=== PATIENT | female | born 1950 | race African-American/Black ===

== ENCOUNTER → 2019-03-18 13:17 | Outpatient (CLI) | payer MEDICARE, OTHER, SELFPAY ==
--- NOTE | 2019-03-18 | DI.RAD.S_ITS ---
PROCEDURE: XR CHEST 2V INDICATIONS: HISTORY OF RENAL CELL CARCINOMA TECHNIQUE: 2 views of the chest were acquired. COMPARISON: Chest radiographs 03/05/18. CT of the chest 01/30/16. FINDINGS: Surgical changes and devices: None. Lungs and pleura: There is mild prominence of pulmonary vasculature. There is mild bilateral almita-hilar reticular pulmonary opacities noted. No focal consolidations or masses are identified. No pleural effusion or pneumothorax. Mediastinum: Mediastinal contours are normal. Heart size is normal. Bones and chest wall: Mild to moderate multilevel degenerative changes of the thoracic spine are noted. IMPRESSION: Findings suggestive of mild bilateral perihilar atelectasis versus mild pulmonary edema. No focal pulmonary consolidations or masses are identified. Consider CT if there is continued clinical concern. Dictated by: Ramin Stone M.D. on 03/18/2019 at 17:09 Approved by: Ramin Stone M.D. on 03/18/2019 at 17:19
--- NOTE | 2019-03-18 | DI.US.S_ITS ---
PROCEDURE: US RENAL COMPLETE INDICATIONS: HISTORY OF RENAL CELL CA, prior partial left nephrectomy. TECHNIQUE: Real-time scanning was performed of the kidneys and bladder, with image documentation. COMPARISON: CT, CT CHEST WO CON, 01/30/2016, 9:39. CT, CT ABD PELVIS W&WO CON IVP, 12/08/2015, 10:03. FINDINGS: Kidneys: Kidneys are normal in size. Right kidney measures 9.8 cm long; left kidney measures 9.2 cm long. Right renal cortical thickness is 1.8 cm; left renal cortical thickness is 1.8 cm. No hydronephrosis or nephrolithiasis. No suspicious solid mass lesions. Bilateral renal cysts redemonstrated, largest of which is on the left measuring 2.0 x 1.5 x 1.7 cm which has increased compared to prior examination. Patient is status post partial left nephrectomy. Bladder: Pre-void bladder volume is 160 mL. Post-void residual is 0 mL. Pre-void images demonstrate no intraluminal masses or stones. On pre-void images, bilateral ureteral jets are noted with color Doppler interrogation. (Of note, ureteral jets may not be detectable in up to 25% of cases due to insufficient differences in specific gravity between ureteral and bladder urine). Miscellaneous: No free pelvic fluid. IMPRESSION: 1. Bilateral renal cysts with slight increase in size on the left. 2. No discrete renal mass identified. Dictated by: Dash OLIVIER Interpreted: Jalil Linder MD on 03/18/2019 at 15:13 Approved by: Jalil Linder M.D. on 03/18/2019 at 15:47
[2019-03-18 16:19] LABS: Blood Urea Nitrogen 22 mg/dL (7-17)
== END ==
PROVIDERS: Visit Provider Urology
DX: N28.1 Cyst of kidney, acquired (principal); Z85.528 Personal history of other malignant neoplasm of kidney
CPT/HCPCS: 36415; 71046; 76770; 82565; 84520

== ENCOUNTER → 2020-05-26 15:36 | Outpatient (CLI) | payer MEDICARE, OTHER, SELFPAY ==
--- NOTE | 2020-05-26 | DI.US.S_ITS ---
PROCEDURE: US PERIPH VENOUS LOW EXTREM RT INDICATIONS: HEAT, EDEMA, ERYTHEMA, PAIN TECHNIQUE: Real-time imaging, as well as color and pulse Doppler interrogation, were performed of the lower extremity deep veins from the inguinal ligament to the popliteal fossa. COMPARISON: None. FINDINGS: The common femoral, femoral and popliteal veins are normally compressible, and free of intraluminal thrombus. Color and pulse Doppler demonstrate normal phasic intraluminal flow. There is normal augmentation response to distal compression maneuver. IMPRESSION: Negative for deep venous thrombosis. Dictated by: Serafin Becerra M.D. on 05/26/2020 at 17:17 Approved by: Serafin Becerra M.D. on 05/26/2020 at 17:17
== END ==
PROVIDERS: PCP Physician Assistant Medical; Referring Provider Physician Assistant Medical; Visit Provider Physician Assistant Medical
DX: M79.604 Pain in right leg (principal); R60.0 Localized edema; L53.9 Erythematous condition, unspecified; R20.8 Other disturbances of skin sensation
CPT/HCPCS: 93971

== ENCOUNTER 2020-12-01 13:01 | Emergency (ER) | payer MEDICARE, OTHER, SELFPAY ==
[2020-12-01] VITALS (9 sets, daily range): BP systolic 164–172; BP diastolic 74–79; PULSE 76–90; RESP 18; TEMP 36.1; O2SAT 95–98; BMI 34.3
--- NOTE | 2020-12-01 15:33 | ED_ITS ---
HPI - Headache General Chief Complaint: Headache Stated Complaint: Headache for 3 Days, Going Into Back and Left Arm Time Seen by Provider: 12/01/20 15:33 Mode of arrival: Ambulatory Limitations: no limitations History of Present Illness HPI Narrative: 69-year-old woman with a history of diabetes hypertension and bilateral renal cancer. He had a partial left nephrectomy a number of years ago and in May was found to have a recurrent cancer on the right side and concern for recurrence verses cysts on the left side. She has been seen at [facility] and further workup has been somewhat delayed. Apparently surgery is going to be required but a cardiac evaluation after noticing small murmur heart murmur will need to have an 1st. She believes that chemotherapy is also going to be involved but she is not entirely sure. Today she notes that she has had intermittent numbness over the inner upper aspect of her left arm she has had a headache for the last 6 days focused in the posterior portion of her head and right bony ankle pain over the last week with no injuries. She notes that her blood pressure is been up slightly she is having occasional lightheadedness associated with the headache. She has never had headaches similar to this. She denies chest pain, palpitations, abdominal pain, dysuria. Related Data Allergies Allergy/AdvReac Type Severity Reaction Status Date / Time cinnamon Allergy Verified 12/01/20 13:12 Review of Systems Review of Systems Narrative: Remainder of complete review of systems is otherwise unremarkable except for that included in the HPI. Patient History Medical History Diabetes Hypertension Renal cancer Social History Smoking Status: Former smoker Smoking Status: Former smoker Substance Use Type: does not use Exam Narrative Exam Narrative: General: Healthy appearing, in no acute distress. Able to give a complete and coherent history. Well-nourished well-developed HEENT: Moist mucous membranes, normal sclera with reactive pupils, Neck: No JVD, supple. No trapezius muscle spasm and no occipital point inserti on tenderness Respiratory: Lungs are clear to auscultation, no wheezing no rales no rhonchi. Full and symmetrical air movement Cardiac: Regular rate and rhythm, 2/6 systolic ejection murmur, no bruits. Abdomen: Soft, nontender, good bowel tones, no flank pain Skin: Warm and dry, no rashes Neurologic: Grossly neurologically intact with no obvious asymmetries or abnormalities Extremities: No trauma, she has point tenderness along the right distal fibula and lateral malleolus without contusion, swelling or bruising. Well perfused Psych: Cooperative, appropriate insight and affect Initial Vital Signs Initial Vital Signs: Vital Signs Temperature 96.9 F L 12/01/20 13:09 Pulse Rate 90 12/01/20 13:09 Respiratory Rate 18 12/01/20 13:09 Pulse Oximetry 98 12/01/20 13:09 Course Orders Ordered: ED Orders 12/01/20 16:38 XR ankle RT min 3V Stat 12/01/20 16:41 CT head/brain wo con Stat 12/01/20 17:00 Complete Blood Count AUTO DIFF Stat Comprehensive Metabolic Panel Stat Discontinued Medications Dexamethasone (Dexamethasone 10 Mg/Ml Vial) 10 mg IV NOW ONE Stop: 12/01/20 16:39 Last Admin: 12/01/20 17:09 Dose: 10 mg Documented by: ALEXIS Diphenhydramine HCl (Diphenhydramine 50 Mg/Ml Vial) 25 mg IV NOW ONE Stop: 12/01/20 16:39 Last Admin: 12/01/20 17:09 Dose: 25 mg Documented by: ALEXIS Sodium Chloride (Normal Saline 0.9%) 1,000 mls @ 1,000 mls/hr IV BOLUS ONE Stop: 12/01/20 17:37 Last Infusion: 12/01/20 18:13 Dose: 0 mls/hr Documented by: Admin: 12/01/20 17:08 Dose: 1,000 mls/hr Documented by: ALEXIS Metoclopramide HCl (Metoclopramide 10 Mg/2 Ml Inj) 10 mg IV NOW ONE Stop: 12/01/20 16:39 Last Admin: 12/01/20 17:09 Dose: 10 mg Documented by: ALEXIS Vital Signs Vital signs: Vital Signs - 8 hr 12/01/20 13:09 12/01/20 16:07 12/01/20 16:48 Temperature 96.9 F L Pulse Rate 90 82 Respiratory Rate 18 Blood Pressure 172/79 H Pulse Oximetry 98 96 98 12/01/20 17:15 12/01/20 17:16 12/01/20 17:30 Temperature Pulse Rate 78 76 Respiratory Rate Blood Pressure 170/74 H Pulse Oximetry 98 98 95 12/01/20 18:00 12/01/20 18:16 12/01/20 18:30 Temperature Pulse Rate 84 88 77 Respiratory Rate 18 Blood Pressure 167/77 H 164/77 H Pulse Oximetry 95 96 95 MDM - Headache Lab Data Result diagrams: 12/01/20 17:00 12/01/20 17:00 Labs: Lab Results 12/01/20 12/01/20 Range/Units 17:00 17:00 WBC 8.8 (4.5-11.0) X10^3/uL RBC 4.89 (4.0-5.2) X10^6/uL Hgb 13.0 (12.0-16.0) g/dL Hct 39.8 (36-46) % MCV 81.5 (80-100) fL MCH 26.6 (26-34) PG MCHC 32.6 (30-36) % RDW 14.7 (11.6-14.8) % Plt Count 256 (150-400) X10^3/uL Neut % (Auto) 57.1 (50-75) % Lymph % (Auto) 32.5 (25-40) % [place] % (Auto) 7.6 (3-14) % Eos % (Auto) 2.0 (2-4) % Baso % (Auto) 0.8 (0-2) % Neut # (Auto) 5000 (6588-3453) /uL Lymph # (Auto) 2900 (5731-3115) /uL [place] # (Auto) 700 (0-900) /uL Eos # (Auto) 200 (0-450) /uL Baso # (Auto) 100 (0-100) /uL Sodium 139 (137-145) mmol/L Potassium 3.8 (3.4-5.1) mmol/L Chloride 106 (98-107) mmol/L Carbon Dioxide 26 (22-32) mmol/L BUN 22 H (7-17) mg/dL Creatinine 0.92 (0.52-1.04) mg/dL Estimated GFR > 60.0 (>60) mL/min BUN/Creatinine Ratio 23.9 H (6-22) Glucose 88 (80-110) mg/dL Calcium 9.6 (8.4-10.2) mg/dL Total Bilirubin 0.4 (0.2-1.3) mg/dL AST 29 (14-36) IU/L ALT 21 (<35) IU/L Alkaline Phosphatase 61 (38-126) U/L Total Protein 6.5 (6.3-8.2) g/dL Albumin 3.7 (3.5-5.0) g/dL Globulin 2.8 (1.7-4.1) g/dL Albumin/Globulin Ratio 1.3 (1.0-2.8) Imaging Data XR ankle: Radiologist's Impression: FINDINGS: Bones: No fractures or dislocations. Ankle mortise is normally aligned. No suspicious bony lesions. Soft tissues: No tibiotalar joint effusion. Achilles tendon appears normal. IMPRESSION: No visualized acute fracture or dislocation. However, if clinical concern and/or pain persist, short interval imaging followup in 7-10 days is recommended, as occult injury cannot be definitively excluded. Dictated by: Lula Potter M.D. on 12/01/2020 at 17:24 CT scan - head: Radiologist's Impression: FINDINGS: Image quality: Excellent. CSF spaces: Basal cisterns are patent. No extra-axial fluid collections. The ventricles are symmetric in size and shape. Brain: No intracranial bleeds or masses. There is cerebral volume loss for age, with resultant ventricular and sulcal prominence. There are periventricular and deep white matter chronic small vessel ischemic changes. There is intracranial internal carotid artery atherosclerosis. Skull and face: Calvarium and visualized facial bones appear intact, without suspicious lesions. Sinuses: Visualized sinuses and mastoids are clear. IMPRESSION: 1. No acute intracranial process. 2. Mild to moderate atrophy and chronic microvascular ischemic changes. Dictated by: Lula Potter M.D. on 12/01/2020 at 17:34 [facility] Narrative Medical decision making narrative: 69-year-old woman with history of renal cell cancer recurrent in May of this year unclear if this is a 2nd primary or metastatic disease. Because of the possibility of metastatic disease with a recurrent headache and on musculoskeletal pain imaging was undertaken. CT scan of the brain is unremarkable. Lab work is reassuring. X-ray of the right ankle is unremarkable. Discharge Plan Departure Patient Disposition: Home Clinical Impression: Headache Qualifiers: Headache type: unspecified Headache chronicity pattern: acute headache Intractability: not intractable Qualified Code(s): R51.9 - Headache, unspecified Instructions: DI for Headache Activity Restrictions/Additional Instructions: Thank you for coming in today I did not find any life-threatening explanation for your headache. Specifically your kidney function, liver function, electrolytes, red blood cells and white blood cells are all reassuring we normal. The CT scan of your head does not show any significant abnormalities and specifically does not show any concerns for your kidney cancer that has spread. Similarly your right ankle x-ray was entirely normal I suspect that you simply sprained that ankle and it will improve Your headache improved with fluids, nausea medicine and a dose of steroid to ensure that it does not return tomorrow. Please follow-up with your primary care physician If you have new or worsening symptoms please return to the ER for further e valuation. Referrals: Karoline Kilpatrick [Primary Care Provider] -
--- NOTE | 2020-12-01 16:38 | DI.RAD.S_ITS ---
PROCEDURE: XR ANKLE RT MIN 3V INDICATIONS: pain lateral malleolus, no trauma, h/o renal cell cancer TECHNIQUE: 3 views of the ankle were acquired. COMPARISON: None. FINDINGS: Bones: No fractures or dislocations. Ankle mortise is normally aligned. No suspicious bony lesions. Soft tissues: No tibiotalar joint effusion. Achilles tendon appears normal. IMPRESSION: No visualized acute fracture or dislocation. However, if clinical concern and/or pain persist, short interval imaging followup in 7-10 days is recommended, as occult injury cannot be definitively excluded. Dictated by: Lula Potter M.D. on 12/01/2020 at 17:24 Approved by: Lula Potter M.D. on 12/01/2020 at 17:24
--- NOTE | 2020-12-01 16:41 | DI.CT.S_ITS ---
PROCEDURE: CT HEAD/BRAIN WO CON INDICATIONS: headache x1 week. h/o renal cell cancer recurrent in Januar TECHNIQUE: Noncontrast 4.5 mm thick angled axial sections acquired from the foramen magnum to the vertex, with coronal and sagittal reformats. For radiation dose reduction, the following was used: automated exposure control, adjustment of mA and/or kV according to patient size. COMPARISON: None. FINDINGS: Image quality: Excellent. CSF spaces: Basal cisterns are patent. No extra-axial fluid collections. The ventricles are symmetric in size and shape. Brain: No intracranial bleeds or masses. There is cerebral volume loss for age, with resultant ventricular and sulcal prominence. There are periventricular and deep white matter chronic small vessel ischemic changes. There is intracranial internal carotid artery atherosclerosis. Skull and face: Calvarium and visualized facial bones appear intact, without suspicious lesions. Sinuses: Visualized sinuses and mastoids are clear. IMPRESSION: 1. No acute intracranial process. 2. Mild to moderate atrophy and chronic microvascular ischemic changes. Dictated by: Lula Potter M.D. on 12/01/2020 at 17:34 Approved by: Lula Potter M.D. on 12/01/2020 at 17:34
[2020-12-01 17:05] LABS: Add Manual Diff / Slide Review NO; Basophils Absolute Auto 100 /uL (0-100); Basophils Percent Auto 0.8 % (0-2); Eosinophils Absolute Auto 200 /uL (0-450); Hematocrit 39.8 % (36-46); Lymphocytes Absolute Auto 2900 /uL (1100-4500); Lymphocytes Percent Auto 32.5 % (25-40); Mean Corpuscular HGB Conc 32.6 % (30-36); Mean Corpuscular Hemoglobin 26.6 PG (26-34); Mean Corpuscular Volume 81.5 fL (80-100); Monocytes Absolute Auto 700 /uL (0-900); Monocytes Percent Auto 7.6 % (3-14); Neutrophils Absolute Auto 5000 /uL (1500-7000); Neutrophils Percent Auto 57.1 % (50-75); Platelet Count 256 X10^3/uL (150-400); Red Blood Cell Count 4.89 X10^6/uL (4.0-5.2); Red Cell Distribution Width 14.7 % (11.6-14.8); White Blood Cell Count 8.8 X10^3/uL (4.5-11.0)
[2020-12-01] MEDS: SODIUM CHLORIDE 0.9% 1,000 ML 1000 ML IV (17:08)
[2020-12-01] MEDS: diphenhydrAMINE 50 MG/ML VIAL 25 MG IV (17:09)
[2020-12-01] MEDS: METOCLOPRAMIDE 10 MG/2 ML INJ IV (17:09)
[2020-12-01] MEDS: DEXAMETHASONE 10 MG/ML VIAL IV (17:09)
[2020-12-01 17:17] LABS: Alanine Aminotransferase 21 IU/L (<35); Albumin 3.7 g/dL (3.5-5.0); Albumin Globulin Ratio 1.3 (1.0-2.8); Alkaline Phosphatase 61 U/L (38-126); Aspartate Aminotransferase 29 IU/L (14-36); BUN Creatinine Ratio 23.9 (6-22); Bilirubin Total 0.4 mg/dL (0.2-1.3); Blood Urea Nitrogen 22 mg/dL (7-17); Calcium 9.6 mg/dL (8.4-10.2); Carbon Dioxide 26 mmol/L (22-32); Chloride 106 mmol/L (98-107); Estimated Glomerular Filt Rate > 60.0 mL/min (>60); Globulin 2.8 g/dL (1.7-4.1); Glucose 88 mg/dL (80-110); HEMOLYSIS < 15 (0-50); Potassium 3.8 mmol/L (3.4-5.1); Sodium 139 mmol/L (137-145); Total Protein 6.5 g/dL (6.3-8.2)
== END 2020-12-01 19:41 | disposition home or self-care (01) ==
PROVIDERS: Emergency Provider Emergency Medicine; PCP Physician Assistant Medical
DX: R51.9 Headache, unspecified (principal); R20.0 Anesthesia of skin; R42 Dizziness and giddiness; C64.9 Malignant neoplasm of unspecified kidney, except renal pelvis
CPT/HCPCS: 36415; 70450; 73610; 80053; 85025; 96361; 96374; 96375; 99284; J1100; J1200; J2765

== ENCOUNTER → 2020-12-02 09:27 | Outpatient (CLI) | payer MEDICARE, OTHER, SELFPAY ==
--- NOTE | 2020-12-02 | DI.ECHO.S_ITS ---
[facility]---------+ [facility] +---------+ : : [address] : : : : [id number] : : : : Phone: [phone] Echocardiogram Report + + :Name: FELIPE BUCIO Study Date: 12/02/2020 Height: 59 in : :[facility] ReadingLocation: Weight: 170 lb : : Gender: Female BSA: 1.7 m2 : :: 1950 Age: 69 yrs BP: 169/97 mmHg: :Reason For Study: Murmur : :Ordering Physician: KYLEE, : :ALESSANDRO Performed By: Channing Cortes : :Referring: ALESSANDRO PICHARDO : + + Interpretation Summary Normal left ventricle size with ejection fraction 60-65%. Mild aortic valve sclerosis. Mild mitral annular calcification. Comparison is made with the echocardiogram of 01/24/2016, there has been no significant change. Procedure: A two-dimensional transthoracic echocardiogram with color flow and Doppler was performed. The study quality was technically adequate. Comparison is made with the echocardiogram of 01/24/2016. The patient was in sinus rhythm with heart rates between 92-103 bpm during the exam. Left Ventricle: The left ventricle is normal in size and wall thickness. The ejection fraction is estimated to be 60-65%. There are no focal wall motion abnormalities. Diastolic function could not be accurately assessed due to unobtainable data. Right Ventricle: The right ventricle is normal in size and function. Atria: Both atria are normal in size. There is no Doppler evidence for an interatrial shunt. Mitral Valve: There is mild mitral annular calcification. There is trace mitral regurgitation. Aortic Valve: There is mild aortic valve sclerosis. There is trace aortic regurgitation. Tricuspid Valve: The tricuspid valve is normal in structure and function. No tricuspid regurgitation. Pulmonary artery pressures cannot be estimated because of the lack of a measurable TR jet velocity but the IVC suggests a CVP of around 3 mmHg. Pulmonic Valve: The pulmonic valve is not well seen, but is grossly normal. There is no pulmonic valvular regurgitation. Great Vessels: The aortic root is normal size. The dimensions of the ascending aorta are normal. The IVC is of normal diameter and collapses greater than 50% with a sniff. This suggests a low right atrial pressure of 3 mm Hg. Pericardium/ Pleura There is no pericardial effusion. There is no pleural effusion. MMode/2D Measurements & Calculations LVIDd: 4.7 cm LVOT diam: 1.9 cm LVIDs: 3.1 cm Ao root diam: 2.9 cm FS: 33.1 % asc Aorta Diam: 3.4 cm IVSd: 0.90 cm LVPWd: 0.82 cm LV vizcarra. diameter/BSA (cm/m^2): 2.7 LV sys. diameter/BSA (cm/m^2): 1.8 LA A2 area: 16.0 cm2 RA long axis: 4.2 cm LA A4 area: 18.4 cm2 RA area: 11.7 cm2 LA length (vol): 5.0 cm RA vol: 27.7 ml LA vol: 49.4 ml RA : 16.1 ml/m2 LA vol index: 28.7 ml/m2 TAPSE: 2.6 cm Doppler Measurements & Calculations Ao V2 max: 192.8 cm/sec LVOT Max Devang: 128.5 cm/sec Ao V2 mean: 114.7 cm/sec LV V1 max P.6 mmHg Ao max P.9 mmHg LV V1 VTI: 25.0 cm Ao mean P.2 mmHg HOLLY(I,D): 2.2 cm2 Ao V2 VTI: 30.8 cm HOLLY(V,D): 1.8 cm2 sev ratio: 0.81 HOLLY indexed to BSA (cm^2/m^2): 1.3 AI P1/2t: 903.7 msec AI dec slope: 137.7 cm/sec2 MV E max devang: 105.7 cm/sec PA pr(Accel): 61.0 mmHg MV A max devang: 122.4 cm/sec MV E/A: 0.86 Med Peak E' Devang: 5.5 cm/sec E/E' med: 19.1 Lat Peak E' Devang: 7.0 cm/sec E/E' lat: 15.1 E/e' average: 17.1 MV dec time: 0.21 sec SV(LVOT): 68.7 ml Electronically signed by: Jayesh Yao on Reading Physician:12/04/2020 12:06 PM
== END ==
PROVIDERS: PCP Physician Assistant Medical; Referring Provider Physician Assistant Medical; Visit Provider Physician Assistant Medical
DX: I35.8 Other nonrheumatic aortic valve disorders (principal); R01.1 Cardiac murmur, unspecified
CPT/HCPCS: 93306

== ENCOUNTER 2020-12-02 10:02 | Emergency (ER) | payer MEDICARE, OTHER, SELFPAY ==
[2020-12-02 10:10] VITALS: BP 161/84; PULSE 98; RESP 15; TEMP 36.7; O2SAT 99; BMI 34.3
[2020-12-02 11:22] VITALS: BP 144/70; PULSE 94; RESP 16; TEMP 36.3; O2SAT 98
--- NOTE | 2020-12-02 12:54 | ED_ITS ---
HPI - Headache General Chief Complaint: Headache Stated Complaint: Head pain/ HBP/ was here yesterday Time Seen by Provider: 12/02/20 12:54 Mode of arrival: Ambulatory Limitations: no limitations History of Present Illness HPI Narrative: Patient is a 69-year-old female who has history diabetes, hypertension, bilateral renal cancer with partial left nephrectomy presenting today with 4 days headache. A yesterday for the same. She had head CT is and treated with migraine cocktail. It was slightly improving in the emergency department but then started coming back. She think she had his actually had his history of shingles on that side although she can not be sure it was that side it might have been the other side. She has sharp shooting pains. No rashes appeared yet. She denies any fever or chills. She sometimes hears a whooshing sound but not always. She is not sensitive to light or noise. She has no numbness tingling or weakness. Related Data Previous Rx's Medication Instructions Recorded valacyclovir 1 gram tablet 1,000 mg PO Q8H #21 tab 12/02/20 Allergies Allergy/AdvReac Type Severity Reaction Status Date / Time cinnamon Allergy Verified 12/02/20 10:12 Review of Systems Review of Systems Narrative: GENERAL: Denies chills, fatigue, malaise, fever, sweats, travel HEENT: Denies sinus pain, ear pain, sore throat, difficulty swallowing, neck pain RESPIRATORY: Denies dyspnea, cough, wheezing, hemoptysis, sputum. CARDIOVASCULAR: Denies chest pain, palpitations, orthopnea, edema GASTROINTESTINAL: Denies nausea, vomiting, abdominal pain, diarrhea, constipation, melena. : Denies dysuria, frequency, incontinence, hematuria, urinary retention, flank pain. MUSCULOSKELETAL: Denies weakness, joint pain, or bony pain SKIN: No rash, no erythema, no pruritus NEUROLOGIC: See HPI PSYCHIATRIC: No concerning psychosocial issues. 12 point review of systems is negative except for those stated above and HPI Patient History Medical History Diabetes Hypertension Renal cancer Social History Smoking Status: Former smoker Smoking Status: Former smoker alcohol intake frequency: holidays/special occasions only Substance Use Type: does not use Exam Initial Vital Signs Initial Vital Signs: Vital Signs Temperature 98.0 F 12/02/20 10:10 Pulse Rate 98 H 12/02/20 10:10 Respiratory Rate 15 12/02/20 10:10 Blood Pressure 161/84 H 12/02/20 10:10 Pulse Oximetry 99 12/02/20 10:10 GENERAL: Alert well-appearing 69-year-old female HEENT: Head atraumatic,EOMI, pupils reactive, face symmetric, moist mucous membranes, no meningeal signs CARDIOVASCULAR: Regular rate and rhythm without murmurs, rubs or gallops. RESPIRATORY: Breath sounds equal bilaterally, no wheezes rales or rhonchi. ABDOMEN: Soft, nontender. Normoactive bowel sounds all 4 quadrants. No guar ding or rebound. EXTREMITIES: Normal range of motion, no clubbing or edema. Neurovascularly intact NEUROLOGICAL: Alert and oriented x4.Normal gait and speech. Cranial nerves II through XII grossly intact. Good [id number], good [id number], strength equal bilaterally, no dysarthria or aphasia, sensation in tact to soft touch bilaterally, no visual changes, no facial droop SKIN: No rash or vesicles are noted especially on left scalp area. No other rash or erythema is noted elsewhere Scores NIH Stroke Scale Level of Conciousness: Alert, keenly responsive Ask month/age: Answers both questions correctly. Open/close eyes, close hand: Performs both tasks correctly Best gaze horizontal: Normal Visual woodruff: No visual loss Facial palsy: Normal symetrical movement Left arm drift: No drift for full 10 sec Right arm drift: No drift for full 10 sec Left leg drift: No drift for full 5 sec Right leg drift: No drift for full 5 sec Limb ataxia: Absent Sensory on face/arms/legs: Normal, no sensory loss Best language: No aphasia, normal Dysarthria: Normal Extinction or inattention: No abnormality Total NIH Stroke scale score: 0 Course Orders Ordered: Discontinued Medications Sodium Chloride (Normal Saline 0.9%) 1,000 mls @ 1,000 mls/hr IV BOLUS ONE Stop: 12/02/20 13:59 Last Infusion: 12/02/20 14:35 Dose: 0 mls/hr Documented by: Admin: 12/02/20 13:34 Dose: 1,000 mls/hr Documented by: NATALY Ketorolac Tromethamine (Ketorolac 30 Mg/Ml Vial) 15 mg IV NOW ONE Stop: 12/02/20 13:01 Last Admin: 12/02/20 13:33 Dose: 15 mg Documented by: NATALY Ondansetron HCl (Ondansetron 4 Mg/2 Ml Inj) 4 mg IV NOW ONE Stop: 12/02/20 13:01 Last Admin: 12/02/20 13:33 Dose: 4 mg Documented by: NATALY Vital Signs Vital signs: Vital Signs - 8 hr 12/02/20 10:10 12/02/20 11:22 12/02/20 13:42 Temperature 98.0 F 97.4 F L Pulse Rate 98 H 94 H 116 H Respiratory Rate 15 16 17 Blood Pressure 161/84 H 144/70 H 149/92 H Pulse Oximetry 99 98 99 12/02/20 14:00 12/02/20 14:37 Temperature Pulse Rate 94 H 90 Respiratory Rate 17 Blood Pressure 120/70 Pulse Oximetry 99 MDM - Headache Lab Data Result diagrams: 12/02/20 13:52 12/02/20 13:52 Labs: Lab Results 12/02/20 12/02/20 Range/Units 13:52 13:52 WBC 12.5 H (4.5-11.0) X10^3/uL RBC 4.74 (4.0-5.2) X10^6/uL Hgb 12.5 (12.0-16.0) g/dL Hct 38.3 (36-46) % MCV 80.9 (80-100) fL MCH 26.4 (26-34) PG MCHC 32.7 (30-36) % RDW 14.6 (11.6-14.8) % Plt Count 254 (150-400) X10^3/uL Neut % (Auto) 67.5 (50-75) % Lymph % (Auto) 24.7 L (25-40) % Bertie % (Auto) 7.3 (3-14) % Eos % (Auto) 0.2 L (2-4) % Baso % (Auto) 0.3 (0-2) % Neut # (Auto) 8400 H (3406-6710) /uL Lymph # (Auto) 3100 (9088-2067) /uL Bertie # (Auto) 900 (0-900) /uL Eos # (Auto) 0 (0-450) /uL Baso # (Auto) 0 (0-100) /uL Sodium 139 (137-145) mmol/L Potassium 3.8 (3.4-5.1) mmol/L Chloride 108 H (98-107) mmol/L Carbon Dioxide 25 (22-32) mmol/L BUN 27 H (7-17) mg/dL Creatinine 0.91 (0.52-1.04) mg/dL Estimated GFR > 60.0 (>60) mL/min BUN/Creatinine Ratio 29.7 H (6-22) Glucose 103 (80-110) mg/dL Calcium 9.5 (8.4-10.2) mg/dL Total Bilirubin 0.3 (0.2-1.3) mg/dL AST 25 (14-36) IU/L ALT 19 (<35) IU/L Alkaline Phosphatase 60 (38-126) U/L Total Protein 6.3 (6.3-8.2) g/dL Albumin 3.6 (3.5-5.0) g/dL Globulin 2.7 (1.7-4.1) g/dL Albumin/Globulin Ratio 1.3 (1.0-2.8) MDM Narrative Medical decision making narrative: Patient has a history of his shingles on the left side of her scalp. She says is this feels like similar pain. However currently do not see a rash. She says that sharp shooting and quite painful. I cannot definitively say that this is shingles although it is a strong possibility. At this time I will give patient prescription for acyclovir but I recommend she wait until rash appear. Patient pain is slightly better after medication and feels ready to go home. Discharge Plan Departure Patient Disposition: Home Clinical Impression: Herpes zoster Instructions: Shingles Activity Restrictions/Additional Instructions: *You have been diagnosed with shingles *What to do: At this time he do not have a rash however based on her history is in the pain that you are experiencing and will give you the antiviral medication. Please wait in till you have a rash before you start taking the medicine. I suspect that in the next 1 week a rash may appear. *Continue to take medications as directed Valacyclovir 1000 mg Q 8 hours for 7 days--> SENT TO [facility] *Follow up with your primary care provider in 2-3 days *Return to ER if you should have increasing pain, numbness tingling weakness or any new, worsening or concerning symptoms Prescriptions: New valacyclovir 1 gram tablet 1,000 mg PO Q8H Qty: 21 RF: 0 Referrals: Karoline Kilpatrick [Primary Care Provider] - Stand Alone Forms: Work Release Note
[2020-12-02] MEDS: ONDANSETRON 4 MG/2 ML INJ IV (13:33)
[2020-12-02] MEDS: KETOROLAC 30 MG/ML VIAL 15 MG IV (13:33)
[2020-12-02] MEDS: SODIUM CHLORIDE 0.9% 1,000 ML 1000 ML IV (13:34)
[2020-12-02 13:42] VITALS: BP 149/92; PULSE 116; RESP 17; O2SAT 99
[2020-12-02 13:59] LABS: Add Manual Diff / Slide Review NO; Basophils Absolute Auto 0 /uL (0-100); Basophils Percent Auto 0.3 % (0-2); Eosinophils Absolute Auto 0 /uL (0-450); Eosinophils Percent Auto 0.2 % (2-4); Hematocrit 38.3 % (36-46); Hemoglobin 12.5 g/dL (12.0-16.0); Lymphocytes Absolute Auto 3100 /uL (1100-4500); Lymphocytes Percent Auto 24.7 % (25-40); Mean Corpuscular HGB Conc 32.7 % (30-36); Mean Corpuscular Hemoglobin 26.4 PG (26-34); Mean Corpuscular Volume 80.9 fL (80-100); Monocytes Absolute Auto 900 /uL (0-900); Monocytes Percent Auto 7.3 % (3-14); Neutrophils Absolute Auto 8400 /uL (1500-7000); Neutrophils Percent Auto 67.5 % (50-75); Platelet Count 254 X10^3/uL (150-400); Red Blood Cell Count 4.74 X10^6/uL (4.0-5.2); Red Cell Distribution Width 14.6 % (11.6-14.8); White Blood Cell Count 12.5 X10^3/uL (4.5-11.0)
[2020-12-02 14:00] VITALS: PULSE 94
[2020-12-02 14:18] LABS: Alanine Aminotransferase 19 IU/L (<35); Albumin 3.6 g/dL (3.5-5.0); Albumin Globulin Ratio 1.3 (1.0-2.8); Alkaline Phosphatase 60 U/L (38-126); Aspartate Aminotransferase 25 IU/L (14-36); BUN Creatinine Ratio 29.7 (6-22); Bilirubin Total 0.3 mg/dL (0.2-1.3); Blood Urea Nitrogen 27 mg/dL (7-17); Calcium 9.5 mg/dL (8.4-10.2); Carbon Dioxide 25 mmol/L (22-32); Chloride 108 mmol/L (98-107); Estimated Glomerular Filt Rate > 60.0 mL/min (>60); Globulin 2.7 g/dL (1.7-4.1); Glucose 103 mg/dL (80-110); HEMOLYSIS < 15 (0-50); Potassium 3.8 mmol/L (3.4-5.1); Sodium 139 mmol/L (137-145); Total Protein 6.3 g/dL (6.3-8.2)
[2020-12-02 14:37] VITALS: BP 120/70; PULSE 90; RESP 17; O2SAT 99
== END 2020-12-02 14:59 | disposition home or self-care (01) ==
PROVIDERS: Emergency Provider Emergency Medicine; PCP Physician Assistant Medical
DX: B02.9 Zoster without complications (principal); R51.9 Headache, unspecified
CPT/HCPCS: 36415; 80053; 85025; 93306; 96361; 96374; 96375; 99283; 99284; J1885; J2405

== ENCOUNTER 2021-01-13 16:37 | Emergency (ER) | payer MEDICARE, OTHER, SELFPAY ==
[2021-01-13 16:46] VITALS: BP 144/68; PULSE 87; RESP 18; TEMP 36.8; O2SAT 98; BMI 35.3
--- NOTE | 2021-01-13 20:36 | ED_ITS ---
HPI - Extremity Injury (Lower) General Chief Complaint: Extremity Injury, Lower Stated Complaint: Edema Rt Lower Limb, R/O Blood Clot Time Seen by Provider: 01/13/21 20:16 Source: patient Mode of arrival: Ambulatory Limitations: no limitations History of Present Illness HPI Narrative: 70-year-old female former smoker with history of renal cancer presents at the request of her primary care provider for evaluation of swelling of her right lateral ankle. She was sent for evaluation of DVT as she has a swelling in the absence of any known injury. Symptoms have been present for many weeks if not longer She denies any calf pain or medial thigh pain. She denies any chest pain or shortness of breath. She denies any cough or hemoptysis. She denies any history of blood clot. Related Data Previous Rx's Medication Instructions Recorded valacyclovir 1 gram tablet 1,000 mg PO Q8H #21 tab 12/02/20 Allergies Allergy/AdvReac Type Severity Reaction Status Date / Time cinnamon Allergy Verified 01/13/21 16:52 Review of Systems Review of Systems Narrative: GENERAL: Denies chills, fatigue, malaise, fever, sweats. HEENT: Denies sinus pain, ear pain, sore throat, difficulty swallowing, dizziness. RESPIRATORY: Denies dyspnea, cough, wheezing, hemoptysis, sputum. CARDIOVASCULAR: Denies chest pain, palpitations, orthopnea, edema, GASTROINTESTINAL: Denies nausea, vomiting, abdominal pain, diarrhea, constipation, melena. : Denies dysuria, frequency, incontinence, hematuria, urinary retention. MUSCULOSKELETAL: See HPI SKIN: Denies rash, skin lesions, or other NEUROLOGIC: Denies weakness, headache, numbness, change in speech, confusion, seizures, incoordination. PSYCHIATRIC: No concerning psychosocial issues. 12 point review of systems is negative except for those stated above Patient History Medical History Diabetes Hypertension Renal cancer Social History Smoking Status: Former smoker Smoking Status: Former smoker alcohol intake frequency: holidays/special occasions only Substance Use Type: does not use Exam Narrative Exam Narrative: GEN: AOx3 and in mild distress EYES: Pupils are equal, round, and reactive to light and accommodation. Extraoccular muscles are intact bilaterally. There is no subconjunctival hemorrhage or exudate. CHEST: Lungs are clear to auscultation bilaterally and free of wheezes, rales, or rhonchi. Heart rate is regular rhythm, there are no murmurs, clicks, rubs, or gallops. There is no chest wall tenderness. ABD: Abdomen is soft and nontender. There is no guarding or rebound. Bowel sounds are normal in all 4 quadrants. There is no mass or organomegaly. EXT: Full and painless range of motion of the right foot and ankle, negative calf squeeze and Homans sign. No redness, warmth noted but there is minimal swelling over lateral malleolus. SKIN: Warm, pink, and dry. No erythema or rash Initial Vital Signs Initial Vital Signs: Vital Signs Temperature 98.3 F 01/13/21 16:46 Pulse Rate 87 01/13/21 16:46 Respiratory Rate 18 01/13/21 16:46 Blood Pressure 144/68 H 01/13/21 16:46 Pulse Oximetry 98 01/13/21 16:46 Course Orders Ordered: ED Orders 01/13/21 20:48 US periph venous low extrem rt Stat Vital Signs Vital signs: Vital Signs - 8 hr 01/13/21 16:46 Temperature 98.3 F Pulse Rate 87 Respiratory Rate 18 Blood Pressure 144/68 H Pulse Oximetry 98 MDM - Extremity Injury (Lower) Imaging Data US - DVT: Radiologist's Impression: Benny Kelley??70??F??1950 ? Allergy/Adv: cinnamon Close Vascular Ultrasound (Signed) Pamela Pinon - 01/13/21 Echocardiogram Ultrasound (Signed) Jayesh Tenorio - 12/02/[address] (Signed) Lula Potter - 12/01/20 Ankle X-Ray (Signed) Lula Potter - 12/01/20 Vascular Ultrasound (Signed) Serafin Becerra - 05/26/20 Renal Ultrasound (Signed) Jalil Linder - 03/18/19 Chest X-Ray (Signed) Ramin Stone - 03/18/19 Launch?[address] [address] Ultrasound Report Signed Patient: Benny Kelley MR#: [id number] : 1950 Acct:[id number] Age/Sex: 70 / F Date of Service: 01/13/21 Loc: ED Accession Number: [id number] ?? Procedure: periph venous low extrem rt Ordering Provider: Juanpablo Torres D.O. PROCEDURE:? PERIPH VENOUS LOW EXTREM RT ? INDICATIONS:? PAIN AND SWELLING ? TECHNIQUE:? Real-time imaging, as well as color and pulse Doppler interrogation, were performed of the lower extremity deep veins from the inguinal ligament to the popliteal fossa.? ? COMPARISON:? [facility], PERIPH VENOUS LOW EXTREM RT, 05/26/2020, 17:12. ? FINDINGS:? The common femoral, femoral and popliteal veins are normally compressible, and free of intraluminal thrombus.? Color and pulse Doppler demonstrate normal phasic intraluminal flow.? There is normal augmentation response to distal compression maneuver. ? ? Trace lower extremity subcutaneous edema without focal fluid collection. ? IMPRESSION:? 1. No DVT in the right lower extremity. 2. Trace subcutaneous edema present.? ? ? Dictated by: Pamela Pinon M.D. on 01/13/2021 at 22:09 ? ? Approved by: Pamela Pinon M.D. on 01/13/2021 at 22:10 ? MDM Narrative Medical decision making narrative: Patient has a very reassuring physical exam and ultrasound. She is sent for DVT, however exam certainly is not the most classic as there is no erythema, circumferential swelling or pain. Ultrasound suggests no DVT. Cellulitis considered but symptoms have been present for 1 month without any worsening, there is no redness, warmth or pain on palpation. She has no systemic findings such as fever, chills nor nausea or vomiting. Orthopedic injury considered among others. Return precautions given and questions answered to her apparent satisfaction Discharge Plan Departure Patient Disposition: Home Clinical Impression: Ankle pain, right Qualifiers: Chronicity: acute Qualified Code(s): M25.571 - Pain in right ankle and joints of right foot Instructions: DI for Ankle Pain Activity Restrictions/Additional Instructions: *You have been diagnosed with [chronic right ankle pain and swelling, no evidence of fracture or DVT *What to do: *Please continue to take your regular medications as directed. [ ] New medication prescriptions sent to your pharmacy: [ ] [ ] New medication written as a paper prescription [x ] No new medications given *Please follow up with your primary care provider in 2-3 days, call for an appointment. Let them know you were seen in the Emergency Department and that we ask that you be seen in follow up. We will electronically transmit a record of today's note if your PCP is in our system *If you do not have a primary care provider please contact the [facility] Resource line at [phone]. They will ask some questions about your medical history and help get you set up with a doctor in the community. *Return to Emergency Department if you should have any new, worsening or concerning symptoms, such as [fever greater than 101 F, shaking chills, worsening pain, persistent vomiting or other bothersome symptoms] Prescriptions: No Action valacyclovir 1 gram tablet 1,000 mg PO Q8H Qty: 21 RF: 0 Referrals: Karoline Kilpatrick [Primary Care Provider] -
--- NOTE | 2021-01-13 20:48 | DI.US.S_ITS ---
PROCEDURE: US [facility] VENOUS LOW EXTREM RT INDICATIONS: PAIN AND SWELLING TECHNIQUE: Real-time imaging, as well as color and pulse Doppler interrogation, were performed of the lower extremity deep veins from the inguinal ligament to the popliteal fossa. COMPARISON: [facility], [facility] VENOUS LOW EXTREM RT, 05/26/2020, 17:12. FINDINGS: The common femoral, femoral and popliteal veins are normally compressible, and free of intraluminal thrombus. Color and pulse Doppler demonstrate normal phasic intraluminal flow. There is normal augmentation response to distal compression maneuver. Trace lower extremity subcutaneous edema without focal fluid collection. IMPRESSION: 1. No DVT in the right lower extremity. 2. Trace subcutaneous edema present. Dictated by: Pamela Pinon M.D. on 01/13/2021 at 22:09 Approved by: Pamela Pinon M.D. on 01/13/2021 at 22:10
== END 2021-01-13 21:48 | disposition home or self-care (01) ==
PROVIDERS: Emergency Provider Emergency Medicine; PCP Physician Assistant Medical
DX: M25.571 Pain in right ankle and joints of right foot (principal)
CPT/HCPCS: 93971; 99283

== ENCOUNTER → 2021-06-08 11:00 | Outpatient (CLI) | payer MEDICARE, OTHER, SELFPAY ==
[2021-06-08 11:55] LABS: Blood Urea Nitrogen 23 mg/dL (7-17); Estimated Glomerular Filt Rate 57.3 mL/min (>60)
--- NOTE | 2021-06-08 11:58 | DI.CT.S_ITS ---
PROCEDURE: CT ABDOMEN WO/W CON INDICATIONS: Personal history of malignant neoplasm of kidney TECHNIQUE: Optional 5 mm thick noncontrast images acquired from the diaphragm to the iliac crests. After the administration of intravenous contrast, 5 mm thick images again acquired from the diaphragm to the iliac crests in the arterial and urographic phases. 5 mm thick coronal and sagittal reformats were then acquired. For radiation dose reduction, the following was used: automated exposure control, adjustment of mA and/or kV according to patient size. COMPARISON: Outside Film, CT, CT ABDOMEN WITH/WITHOUT CONTRAST, 06/07/2020, 11:26. [facility], MR, MR ABDOMEN WITH/WITHOUT CONTRAST, 10/31/2020, 8:45. FINDINGS: Image quality: Excellent. Lung bases: There is mild dependent atelectasis bilaterally. Heart size is normal. There is a small pericardial effusion redemonstrated. Genitourinary: Posteriorly within the left kidney, there is a small hypoattenuating collection measuring up to approximately 1.6 x 1.3 cm in transverse dimension by 3.2 cm in craniocaudal dimension with mild peripheral enhancement. There is adjacent mild left perinephric stranding posteriorly extending to the abdominal wall. The findings likely represent sequelae of radiofrequency ablation of the previously described left renal mass. A few additional renal cysts and small low-density foci likely representing cysts are also redemonstrated. These include a few slightly hyperdense lesions without definite enhancement consistent with hemorrhagic cysts. No definite additional enhancing renal mass identified. There is no hydronephrosis. The opacified renal collecting systems demonstrate no suspicious filling defects. Other solid organs: Evaluation of the liver demonstrates no focal hepatic lesions. The gallbladder appears within normal limits without calcified gallstones. Biliary system is non-dilated. Pancreas enhances normally. No peripancreatic fat stranding or fluid collections. No pancreatic duct dilatation. The spleen is normal in size. No adrenal nodules. Peritoneum and bowel: Visualized bowel loops are normal in wall thickness and caliber. No free fluid or air. Nodes and vessels: No retroperitoneal or mesenteric adenopathy by size criteria. Aorta and inferior vena cava are normal in caliber. Bones: No suspicious bony lesions. No vertebral body compression fractures. Miscellaneous: There is a small fat-containing umbilical hernia. IMPRESSION: 1. Small peripherally enhancing collection in the left kidney likely representing sequelae of radiofrequency ablation of the previously described renal mass. No discrete residual or new enhancing solid mass identified. Recommend continued attention on follow-up. 2. Additional bilateral renal cysts redemonstrated including multiple hemorrhagic cysts. 3. No evidence of lymphadenopathy in the abdomen by size criteria. Dictated by: Jalil Linder M.D. on 06/08/2021 at 16:46 Approved by: Jalil Linder M.D. on 06/08/2021 at 16:55
== END ==
PROVIDERS: PCP Physician Assistant Medical; Referring Provider Urology; Visit Provider Urology
DX: Z85.528 Personal history of other malignant neoplasm of kidney (principal); Z08 Encounter for follow-up examination after completed treatment for malignant neoplasm; N28.1 Cyst of kidney, acquired; K42.9 Umbilical hernia without obstruction or gangrene
CPT/HCPCS: 36415; 74170; 82565; 84520; Q9967